=== PATIENT | female | born 1980 | race African-American/Black ===

== ENCOUNTER 2016-06-19 18:15 | Emergency (ER) | payer MEDICAID, OTHER | END 2016-06-20 01:32 | disposition left against medical advice (07) | LOC: ER 18:15 | DX: R21 Rash and other nonspecific skin eruption (principal); Z53.21 Procedure and treatment not carried out due to patient leaving prior to being seen by health care provider ==

== ENCOUNTER 2016-06-20 20:40 | Emergency (ER) | payer MEDICAID, OTHER ==
[~2016-06-20] VITALS: Ht 167.6 cm; Wt 84.0 kg
[2016-06-20 23:57] VITALS: BP 126/78
== END 2016-06-21 00:21 | disposition home or self-care (01) ==
LOC: ER 20:40
DX: T14.8 Other injury of unspecified body region (principal); W57.XXXA Bitten or stung by nonvenomous insect and other nonvenomous arthropods, initial encounter; Z91.018 Allergy to other foods; R03.0 Elevated blood-pressure reading, without diagnosis of hypertension; F41.8 Other specified anxiety disorders; Y93.89 Activity, other specified; Y92.89 Other specified places as the place of occurrence of the external cause; Z88.8 Allergy status to other drugs, medicaments and biological substances; F12.90 Cannabis use, unspecified, uncomplicated
CPT/HCPCS: 99283

== ENCOUNTER 2018-03-14 09:01 | Emergency (ER) | payer BC, MEDICAID ==
[~2018-03-14] VITALS: Ht 165.1 cm; Wt 68.0 kg
[2018-03-14 09:20] VITALS: BP 119/77
== END 2018-03-14 11:42 | disposition left against medical advice (07) ==
LOC: ER 09:09
DX: Z53.21 Procedure and treatment not carried out due to patient leaving prior to being seen by health care provider (principal)

== ENCOUNTER 2022-01-20 13:08 | Emergency (ER) | payer BC, OTHER ==
[~2022-01-20] VITALS: Ht 165.1 cm; Wt 74.0 kg
[2022-01-20 13:17] VITALS: BP 141/69
[2022-01-20] MEDS ORDERED: IBUPROFEN 600MG TABLET PO ONE (15:00)
[2022-01-20 16:09] LABS: BASOPHILS % 1.1 % (0.0-2.0); EOSINOPHILS % 2.8 % (0.0-5.0); HEMATOCRIT. 41.3 % (36.0-48.0); HEMOGLOBIN. 13.8 g/dL (12.0-16.0); LYMPHOCYTES % 48.1 % (20.0-50.0); MEAN CORPUSCULAR HEMOGLOBIN 31.5 pg (28.0-32.0); MEAN CORPUSCULAR VOLUME 94.3 fL (81.0-99.0); MEAN PLATELET VOLUME 7.6 fl (7.4-10.4); PLATELET 301 x1000/uL (130-400); RED BLOOD CELL COUNT 4.39 mill/uL (4.2-5.4); RED CELL DISTRIBUTION WIDTH 13.9 % (11.6-14.6)
[2022-01-20 16:23] LABS: CHLORIDE 109 mEq/L (98-107)
[2022-01-20] MEDS ORDERED: IBUPROFEN 600MG TABLET PO NR (18:00)
[2022-01-20 18:13] LABS: CLARITY URINE CLEAR (CLEAR); COLOR URINE YELLOW (YELLOW); KETONES URINE NEGATIVE (NEGATIVE); LEUKOCYTE ESTERASE URINE NEGATIVE (NEGATIVE); NITRITE URINE NEGATIVE (NEGATIVE); OCCULT BLOOD URINE NEGATIVE (NEGATIVE); PH URINE 6.5 (4.5-8.0); PROTEIN URINE NEGATIVE (NEGATIVE); SPECIFIC GRAVITY URINE 1.014 (1.005-1.030)
== END 2022-01-20 19:43 | disposition home or self-care (01) ==
LOC: ER 13:18
DX: R10.9 Unspecified abdominal pain (principal); R11.10 Vomiting, unspecified; F12.10 Cannabis abuse, uncomplicated; Z90.710 Acquired absence of both cervix and uterus
CPT/HCPCS: 36415; 80053; 81003; 81025; 85025; 99283